=== PATIENT | female | born 1985 | race Two or more races ===

== ENCOUNTER 2024-08-30 00:55 | Emergency (ER) | payer OTHER ==
[~2024-08-30] VITALS: Ht 170.2 cm; Wt 67.1 kg
[2024-08-30] MEDS ORDERED: HYDROCHLOROTH12.5 M2 PO (01:02)
[2024-08-30] MEDS ORDERED: PROPRANOLOL HCL10 MG PO (01:02)
[2024-08-30] MEDS ORDERED: FUROsemide 20 MG/2 ML VIAL ONE (01:58)
[2024-08-30] MEDS ORDERED: ENALAPRILAT DIHYDRATE 1.25 MG/ML VIAL IV ONE ×2 (01:58→02:00)
[2024-08-30] MEDS ORDERED: FUROsemide 20 MG/2 ML VIAL IV ONE (02:00)
[2024-08-30 02:24] LABS: HEMATOCRIT 42.8 % (36.0-45.00); HEMOGLOBIN 14.6 g/dL (12.0-15.00); MEAN CELL VOLUME 84.7 fL (80.00-100.00); MEAN CORPUSCULAR HEMOGLOBIN 28.9 pg (27.00-32.0); MEAN CORPUSCULAR HGB CONC 34.2 g/dl (32.0-36.0); PLATELET COUNT 191 K/uL (150-450); RED BLOOD COUNT 5.06 M/uL (4.00-6.00); RED CELL DISTRIBUTION WIDTH 13.3 % (11.5-14.5)
[2024-08-30 02:44] LABS: ALBUMIN 4.1 gm/dL (3.4-5.0); BILIRUBIN TOTAL 0.53 mg/dL (0.3-1.2); CALCIUM 9.6 mg/dL (8.5-10.1); CREATININE SERUM 0.98 mg/dL (0.55-1.02); GFR 62.86; GLOBULINA 4.3 G/DL (2.4-3.5); TOTAL PROTEIN 8.4 gm/dL (6.4-8.2)
[2024-08-30] MEDS ORDERED: HYZAAR 50-12.51 EACH PO (03:12)
== END 2024-08-30 03:17 | disposition home or self-care (01) ==
LOC: ER 00:56
PROVIDERS: General Practice
DX: I10 Essential (primary) hypertension (principal); R07.89 Other chest pain